=== PATIENT | female | born 1965 | race African-American/Black ===

== ENCOUNTER 2021-06-07 10:12 | Day surgery (SDC) | payer OTHER ==
[2021-06-07] MEDS ORDERED: NA CHLORIDE 0.9% 1,000 ML ONE (10:54)
[2021-06-07] MEDS ORDERED: CEFAZOLIN/SWI 2gm 2 GM/20 ML SYR ONE (11:27)
[2021-06-07] MEDS ORDERED: SODIUM HYPOCHLORITE 0.25% 473 ML ONE (12:14)
[2021-06-07 13:02] VITALS: O2SAT 100
[2021-06-07] MEDS ORDERED: BUPIVACAINE 0.25% PF 10 ML VIAL ONE (13:04)
[2021-06-07] MEDS ORDERED: FENTANYL CITR 100 MCG/2 ML ONE (13:07)
[2021-06-07] MEDS ORDERED: dexAMETHasone 10 MG/ML VIAL ONE (13:07)
[2021-06-07] MEDS ORDERED: MIDAZOLAM HCL 2 MG/2 ML INJ ONE (13:07)
[2021-06-07] MEDS ORDERED: propofoL 200 MG/20 ML VIAL IV ONE (13:07)
[2021-06-07] MEDS ORDERED: LIDOCAINE 2% MPF 5 ML VIAL ONE (13:08)
[2021-06-07] MEDS ORDERED: ONDANSETRON 4 MG/2 ML VIAL ONE (13:08)
[2021-06-07] MEDS ORDERED: BUPIVACAINE 0.25% PF 10 ML VIAL IJ ONE ×2 (14:36)
[2021-06-07] MEDS ORDERED: KETOROLAC 30 MG/ML INJ ONE (14:47)
--- NOTE | 2021-06-07 15:33 | P.OP ---
Preoperative diagnosis: LEFT Axillary Wound Postoperative diagnosis: LEFT Axillary Wound Primary procedure: Excisional Debridement of LEFT Axillary Wound Anesthesia: GETA + Local Estimated blood loss: <10cc Specimen: debridement tissue Findings: ~7cmx 5cm to adipose necrotic wound Complications: None Transferred to: Recovery Room Condition: Good
[2021-06-07 15:38] VITALS: BP 133/73
[2021-06-07 16:58] VITALS: TEMP 97.1
--- NOTE | 2021-06-08 02:43 | OP ---
Date of Procedure: 06/07/2021 Surgeon: Agustin Perry MD, Preoperative Diagnosis: Left axillary wound. Postoperative Diagnosis: Left axillary wound. Procedure Performed: An excisional debridement of left axillary wound. Anesthesia: General endotracheal plus local with 0.25% Marcaine without epinephrine. Estimated Blood Loss: Less than 10 mL. Specimen: Debridement tissue. Findings: Approximately 7 cm x 5 cm x 1 cm necrotic wound, down to adipose tissue. Complications: None. Disposition: Patient transferred to recovery room in good condition. Procedure In Detail: After informed consent was obtained, the patient was brought to the operating r oom, prepped and draped in the usual sterile fashion after an adequate anesthesia was achieved. I berg ve made a curvilinear incision circumferentially around the lips for approximately 7 cm x 5 cm down t hrough subcutaneous tissue using 10 blade into subcutaneous fat. This was a previous area of wounds where the patient had a previous axillary abscess drained. There were several areas of necrosis with in this ellipse of skin, as such electrocautery was used to dissect down circumferentially to remove this tissue. All debrided tissue was sent off for pathologic examination. The wound was then irriga agustin. Hemostasis was achieved with electrocautery at this point. The wound was once again irrigated at this point and packed with Dakin-soaked Kerlix and a sterile dressing placed over top. The patien t tolerated the procedure without evidence of complication, transferred back in good condition. All counts were correct at the end of the case. OBDULIO/MODL Voice ID: [id number] Report ID: [id number]
== END 2021-06-07 16:20 | disposition home or self-care (01) ==
LOC: OR 10:12
PROVIDERS: ATTEND Surgery
PROC: 0JBF0ZZ Excision of Left Upper Arm Subcutaneous Tissue and Fascia, Open Approach (ICD-10-PCS; principal; 2021-06-07 12:00)
DX: S41.102A Unspecified open wound of left upper arm, initial encounter (principal); I96 Gangrene, not elsewhere classified; Z20.822 Contact with and (suspected) exposure to COVID-19
CPT/HCPCS: 82947 ×2; 88304; 11042; U0003; J2704; J2250; J3010; J0690; J7030; J2405; J1100

== ENCOUNTER 2024-01-09 07:12 | Day surgery (SDC) | payer OTHER ==
[2024-01-08 16:06] LABS: Absolute Basophils 0.1 K/uL (0-0.5); Absolute Eosinophils 0.3 K/uL (0-0.5); Absolute Lymphocytes (CBC) 1.9 K/uL (0.7-4.9); Absolute Monocytes 0.7 K/uL (0.1-1.3); Absolute Neutrophil 3.1 K/uL (1.8-8.0); Basophils % 1.6 % (0-1.3); Eosinophils % 4.9 % (0-4.4); Hematocrit 37.6 % (36.0-45.0); Hemoglobin 12.9 g/dL (12.0-15.0); Lymphocytes % 31.4 % (15.3-44.8); MCH 29.2 pg (27.0-35.0); MCHC 34.3 g/dL (32.0-36.0); MPV 7.5 fL (7.6-11.3); Monocytes % 11.3 % (3.3-12.3); Neutrophils % 50.8 % (41.7-73.7); Platelets 313 thou/uL (152-406); RBC Red Blood Cell Count 4.43 M/uL (3.86-4.86)
[2024-01-08 16:21] LABS: ALT/SGPT 31 U/L (13-56); AST/SGOT 15 U/L (15-37); Albumin 3.5 g/dL (3.4-5.0); Albumin/Globulin Ratio 0.8 (1.1-1.8); Alkaline Phosphatase 171 U/L (45-117); Anion Gap 6.9 mEq/L (5.0-15.0); BUN Blood Urea Nitrogen 13 mg/dL (7-18); Bicarbonate 28 mEq/L (21-32); Bilirubin Total 0.4 mg/dL (0.2-1.0); Globulin 4.2 g/dL (2.3-3.5); Glomerular Filtration Rate 95 ml/min (=/>90); Glucose Level 233 mg/dL (74-106); Lipase 69 U/L (13-75); Potassium 3.9 mEq/L (3.5-5.1); Protein, Total 7.7 g/dL (6.4-8.2); Sodium Level 135 mEq/L (136-145)
[2024-01-08 16:26] LABS: Bilirubin Direct < 0.2 mg/dL (0-0.2); Bilirubin Indirect, Calculated 0.2 mg/dL (0.2-0.8)
--- NOTE | 2024-01-08 22:37 | RAD REPORT ---
EXAMINATION: TWO VIEW CHEST XR CLINICAL INDICATION: Female, 58 years old. HS MAIN Pre-op cholecystectomy. Hypertension TECHNIQUE: 2 view radiographs of the chest were performed. COMPARISON: 09/04/2014 FINDINGS: The lungs are well inflated and clear, apart from stable mild central interstitial prominence. No pne umothorax or sizable effusion. The heart is normal in size. Mediastinal contours are unremarkable. IMPRESSION: No acute findings, with stable mild central interstitial prominence, could reflect a degree of centra l congestion.
[2024-01-09] MEDS ORDERED: LIDOCAINE 2% MPF 5 ML VIAL ONE (07:28)
[2024-01-09] MEDS ORDERED: propofoL 200 MG/20 ML VIAL IV ONE (07:28)
[2024-01-09] MEDS ORDERED: ONDANSETRON 4 MG/2 ML VIAL ONE (07:28)
[2024-01-09] MEDS ORDERED: ROCURONIUM 50 MG/5 ML VIAL IV ONE (07:28)
[2024-01-09] MEDS ORDERED: FENTANYL CITR 100 MCG/2 ML ONE ×2 (07:28→09:16)
[2024-01-09] MEDS ORDERED: MIDAZOLAM HCL 2 MG/2 ML INJ ONE (07:29)
[2024-01-09] MEDS: NA CHLORIDE 0.9% 1,000 ML ONE (07:40)
[2024-01-09 08:09] VITALS: O2SAT 100
[2024-01-09] MEDS ORDERED: SUGAMMADEX SODIUM 200 MG/2 ML VIAL IV ONE (08:18)
[2024-01-09] MEDS ORDERED: FAMOTIDINE 20 MG/2 ML VIAL IV ONE (08:19)
[2024-01-09] MEDS: CEFOXITIN SODIUM 1 GM/VIAL ONE (09:12)
[2024-01-09] MEDS ORDERED: GLYCOPYRROLATE 0.2 MG/ML SYR ONE ×2 (09:20→09:47)
[2024-01-09] MEDS ORDERED: EPHEDRINE SULF 50 MG/ML VIAL ONE (09:22)
[2024-01-09] MEDS ORDERED: dexAMETHasone 4 MG/ML VIAL ONE (09:36)
[2024-01-09] MEDS ORDERED: KETOROLAC 30 MG/ML INJ ONE (09:36)
[2024-01-09] MEDS ORDERED: NEOSTIGMINE 1 MG/ML -10 ML VIAL ONE (09:46)
[2024-01-09] MEDS ORDERED: Mastisol Adhesive Liq ONE (09:52)
--- NOTE | 2024-01-09 10:11 | P.BOP ---
Preoperative diagnosis: symptomatic cholelithiasis, RUQ abd pain Postoperative diagnosis: same plus intrabdominal adhesions Primary procedure: 1. Laparoscopic cholecystectomy Secondary procedure: 2. Laparoscopic lysis of adhesions Estimated blood loss: <10cc Specimen: gb Findings: multile ventral intrabdominal adhesions Anesthesia: General Complications: None Transferred to: Recovery Room Condition: Good
[2024-01-09] MEDS: CODEINE 30MG/APAP 300MG TAB ONE (10:57)
[2024-01-09 11:00] VITALS: TEMP 97.6
[2024-01-09 11:34] VITALS: BP 127/70
--- NOTE | 2024-01-09 14:48 | EKG ---
Test Date: 2024-01-08 Test Time: 15:55:13 Music Department Chair: JOANA MEASUREMENT RESULTS: Intervals: Rate: 74 WA: 174 QRSD: 74 QT: 372 QTc: 412 Shubuta: P: 43 WA: 174 QRS: -24 T: 22 INTERPRETIVE STATEMENTS: Normal sinus rhythm Low voltage QRS Possible Anterolateral infarct, age undetermined Abnormal ECG No previous ECG available for comparison Electronically Signed On 01-09-24 14:46:10 CDT by Ken Sibley
--- NOTE | 2024-01-09 21:31 | DS ---
Date of Discharge: 01/09/2024 Diagnoses: Symptomatic cholelithiasis, right upper quadrant abdominal pain, intraabdominal adhesions . Procedures: Laparoscopic cholecystectomy, laparoscopic lysis of adhesions. Disposition: Home. Activity: As tolerated. No heavy lifting. Condition: Stable. Discharge Instructions: Follow up in my office in 1 week. Call for appointment [phone]. Keep area dry for 48 hours, then may shower. Keep Steri-Strip intact. ENRRIQUE/KITA Voice ID: [id number] Report ID: [id number]
--- NOTE | 2024-01-09 21:31 | OP ---
Date of Procedure: 01/09/2024 Surgeon: Luis Whaley MD Preoperative Diagnoses: Symptomatic cholelithiasis; right upper quadrant abdominal pain. Postoperative Diagnoses: Symptomatic cholelithiasis; right upper quadrant abdominal pain; intraabdom inal adhesions. Procedures: Laparoscopic cholecystectomy, laparoscopic lysis of adhesions. Estimated Blood Loss: Less than 10 cc. Specimen: Gallbladder. Findings: Multiple ventral intraabdominal adhesions, also gallbladder distention. Anesthesia: General plus local. Indication: This is a case of a female who comes to us with epigastric/right upper quadrant pain, di agnosed with dyskinesia, symptomatic cholelithiasis, and right upper quadrant abdominal pain. The be nefits, alternatives, and risks of laparoscopic, possible open cholecystectomy were fully explained, which include, but not limited to, infection, bleeding, damage to adjacent structures, anesthesia com plication, choledocholithiasis, bile leak, pancreatitis, [place], and even . She also understands th is may not relieve any symptoms. She might need more than one surgical intervention. She understood , signed a consent. Procedure In Detail: The patient was brought to the operating room, placed in supine position. Anes thesia was done without complication. Abdominal area was prepped and draped in the usual sterile fas hion. Local anesthesia was applied. The periumbilical region incision was carried down. She has pr evious scars in that region, so we were careful going down the fascia since we expected some adhesion s underneath. Incision was carried down to the fascia, which was opened under direct vision. Perito neum was encountered, opened under direct vision. Immediately, we noticed some scar tissue in that a janis, but we managed to carefully place the Uzma trocar in that region and obtained pneumoperitoneum . I placed 3 more trocars under direct visualization in the right upper quadrant, 5 mm each one of t hem. This allowed me to put a camera in that area and trying to go ventrally to remove some adhesion s that needed to be removed in order for us to continue with the surgery since the Uzma trocar was going in between those adhesions, so with the help of Endo Shear, we proceeded to carefully do lysis of adhesions. We have to use the LigaSure to continue doing lysis of adhesions needed, not only in t he gallbladder area, but also in the ventral region and periumbilical area. Once the lysis of adhesi ons was done, we were able then to visualize the area properly. We checked for any hemostasis. No e nterotomies. At that moment, I proceeded to put a grasper in the fundus of the gallbladder and anoth er grasper in the infundibulum, retracting the gallbladder in the inferolateral fashion, exposing the triangle of Calot, obtaining critical view. Cystic duct and cystic artery were clearly isolated and freed circumferentially, and a connection between those and the gallbladder were clearly identified. We proceeded to ligate those by using at least 3 clips proximal and 1 distal, ligation in the middl e. Same was done with the cystic artery. No bile leak. No bleeding. The gallbladder was removed f rom liver using Bovie cauterizer and removed from abdominal cavity using Endo Catch through the umbil ical incision. The area was inspected once again, not only the gallbladder area and the gallbladder fossa, but also the area of the lysis of adhesions to about half time of the case. The patient joanie ated the procedure well. No bleeding. No enterotomies. At that moment, I proceeded to remove the t rocars under direct vision, deflated pneumoperitoneum, closed the fascia with #1 Vicryl, irrigated sellers bcutaneous tissue, closed that with 3-0 chromic and the skin with 3-0 chromic in a subcuticular fashi on. Sponge count and instrument counts were correct. The patient tolerated the procedure well. The patient was sent to recovery in stable condition. ENRRIQUE/KITA Voice ID: [id number] Report ID: [id number]
== END 2024-01-09 11:30 | disposition home or self-care (01) ==
LOC: OR 07:12
PROVIDERS: ATTEND Surgery
PROC: 0FT44ZZ Resection of Gallbladder, Percutaneous Endoscopic Approach (ICD-10-PCS; principal; 2024-01-09 09:15)
DX: K80.10 Calculus of gallbladder with chronic cholecystitis without obstruction (principal); K82.8 Other specified diseases of gallbladder; R10.11 Right upper quadrant pain
CPT/HCPCS: 93005; 85025; 80048; 36415; 82947; 80076; 88304; 83690; 71046; 47600; J2704; J1100; J2710; J2003; J2250; J3010 ×2; J0694; J2405; J7030